=== PATIENT | male | born 1950 ===

== ENCOUNTER 2023-11-20 14:17 | Emergency (ER) | payer MEDICARE ==
[2023-11-20] MEDS: Ketorolac 30 MG/ML SDV IM ONE (14:53)
[2023-11-20] MEDS: Orphenadrine 60 MG/2 ML Inj IM ONE (14:54)
[2023-11-20] MEDS: Meloxicam 7.5 MG Tab PO STA (15:34)
[2023-11-20] MEDS: Take Home: traMADol 50 MG, 4 Tab Pack PO ONE (15:35)
[2023-11-20] MEDS: Take Home: Cyclobenzaprine 10 MG Tab, 4 Tab Pack PO ONE (15:35)
== END 2023-11-20 15:37 | disposition home or self-care (01) ==
LOC: CC.ED 14:17
DX: M54.16 Radiculopathy, lumbar region (principal); Z87.891 Personal history of nicotine dependence
CPT/HCPCS: 72100; 96372; 99283; A9270; J1885; J2360; 99284